=== PATIENT | female | born 1955 | race Two or more races ===

== ENCOUNTER 2017-02-02 10:15 | Inpatient (IN) | payer OTHER ==
[~2017-02-02] VITALS: Ht 162.6 cm; Wt 82.6 kg
[2017-02-10] VITALS (10 sets, daily range): BP systolic 108–147; BP diastolic 44–74
[2017-02-10] MEDS ORDERED: Vancomycin 1gm inj IVPB ONE (12:35)
[2017-02-10] MEDS ORDERED: Thrombin 5000 units TOPIC ONE (12:35)
[2017-02-10] MEDS ORDERED: Bacitracin 50000 Units Vial ONE (12:36)
[2017-02-10] MEDS ORDERED: Bupivacaine w/Epi 0.5% 30ml Vial INJ ONE (12:36)
[2017-02-10] MEDS ORDERED: SIMVASTATIN40 MG ORAL (13:12)
[2017-02-10] MEDS ORDERED: KLONOPIN1 MG ORAL (13:13)
[2017-02-10] MEDS ORDERED: BUPROPION HCL100 M1 ORAL ×2 (13:14→13:15)
[2017-02-10] MEDS ORDERED: NORMODYNE100 MG ORAL (13:16)
[2017-02-10] MEDS ORDERED: HYDRALAZINE HCL10 MG ORAL (13:17)
[2017-02-10] MEDS ORDERED: ASPIR 8181 MG ORAL (13:18)
--- NOTE | 2017-02-10 13:29 | Pre-Procedure Note/Attestation ---
Pre-Procedure Note/Attestation Complete Prior to Procedure Procedure Narrative: acdf c45 and c56 Indications for Procedure Pre-Operative Diagnosis: cerv radiculopathy Attestation I attest that I discussed the nature of the procedure; its benefits; risks and complications; and alternatives (and the risks and benefits of such alternatives ), prior to the procedure, with the patient (or the patient's legal route service representative). I attest that, if there was a reasonable possibility of needing a blood transfusion, the patient (or the patient's legal route service representative) was given the [facility] standardized written summary, pursuant to the Dionicio Winigan Blood Safety Act ([place] Health and Safety Code # 1645, as amended). I attest that I re-evaluated the patient just prior to the surgery and that there has been no change in the patient's H&P, except as documented below: COLLEEN OSPINA Feb 10, 2017 13:29
[2017-02-10] MEDS ORDERED: Norco 5mg/325mg tab ORAL PRN (13:30)
[2017-02-10] MEDS ORDERED: HYDROmorphone 1mg/ml Carpuject SUBQ PRN (13:30)
[2017-02-10] MEDS ORDERED: Norco 7.5mg/325mg tab ORAL PRN ×2 (13:30)
[2017-02-10] MEDS ORDERED: HYDROmorphone 1mg/ml Carpuject IVP PRN (13:30)
[2017-02-10] MEDS ORDERED: Naloxone 0.4mg/ml Inj IVP PRN (13:30)
[2017-02-10] MEDS ORDERED: NS Irrig 1000ml ONE (14:00)
[2017-02-10] MEDS ORDERED: LR 1000ml ONE (14:00)
[2017-02-10] MEDS ORDERED: Ketorolac 30mg Inj ONE (14:00)
[2017-02-10] MEDS ORDERED: fentaNYL 250mcg/5ml ONE (14:00)
[2017-02-10] MEDS ORDERED: Propofol 10mg/ml 100ml btl IV ONE (14:00)
[2017-02-10] MEDS ORDERED: Succinylcholine 20mg/ml 10ml vial ONE (14:00)
[2017-02-10] MEDS ORDERED: Midazolam 2mg/2ml Inj ONE (14:00)
[2017-02-10] MEDS ORDERED: Sterile Water Irrig 1000ml IRRIG ONE (14:00)
[2017-02-10] MEDS ORDERED: Zemuron 50mg/5ml Inj IV ONE (14:00)
[2017-02-10] MEDS ORDERED: LR 1000ml 1,000 ML IVLG SCH (14:54)
--- NOTE | 2017-02-10 14:54 | Anethesia Preoperative Eval ---
Anesthesia Pre-op PMH/ROS General Date of Evaluation: Feb 10, 2017 Time of Evaluation: 13:16 Anesthesiologist: Osmar ASA Score: ASA 3 Mallampati Score Class I : Soft palate, uvula, fauces, pillars visible Class II: Soft palate, uvula, fauces visible Class III: Soft palate, base of uvula visible Class IV: Only hard plate visible Mallampati Classification: Class II Surgeon: Honorio Diagnosis: Symptomatic cervical spinal stenosis Surgical Procedure: ACDF C4-C5 C5-C6 Anesthesia History: none Allergies: Coded Allergies: No Known Allergies (Unverified , 02/07/17) Medications: see eMAR Past Medical History Cardiovascular: Reports: CAD - stable, HTN, Denies: MS, arrhythmia, other, valve dz Pulmonary: Denies: COPD, TOMA, asthma, other Gastrointestinal/Genitourinary: Reports: GERD, Denies: CRI, ESRD, other Neurologic/Psychiatric: Reports: TIA - in remote past asymptomatic, depression/ anxiety, Denies: CVA, dementia, other Endocrine: Denies: DM, hypothyroidism, other, steroids HEENT: Denies: KALTAG (L), KALTAG (R), cataract (L), cataract (R), glaucoma, other Hematology/Immune: Denies: DVT, anemia, bleeding disorder, other Musculoskeletal/Integumentary: Denies: DDD, DJD, OA, RA, edema, other Other: other - overweight PMH Narrative: as above C-sections x 2, knee arthroscopy PSxH Narrative: as above Anesthesia Pre-op Phys. Exam Physician Exam Last Vital Signs Date Time Temp Pulse Resp B/P Pulse Ox O2 Delivery O2 Flow Rate FiO2 02/10/17 12:50 98.1 77 18 147/65 96 Room Air Constitutional: NAD Neurologic: CN 2-12 intact Cardiovascular: RRR, no M/R/G Respiratory: CTA Gastrointestinal: other - obesity Airway Exam Mallampati Score: Class II MO: limited Neck: stiff ROM: limited Teeth: intact Dentures: no lower, no upper Anesthesia Pre-op A/P Labs see chart Studies Pre-op Studies: EKG - LBBB, echo - EF > 55% Risk Assessment & Plan Assessment: ASA 3 Plan: GA with ETT neuromonitoring Status Change Before Surgery: No Pre-Antibiotics Drug: Ancef 2 gr. Given Within 1 Hr of Incision: Yes Time Given: 13:52 ALEX JOHNSON M.D. Feb 10, 2017 14:53
[2017-02-10] MEDS ORDERED: DiphenhydrAMINE 50mg/ml Inj IVP PRN (15:00)
[2017-02-10] MEDS ORDERED: Metoclopramide 10mg/2ml Inj IVP PRN (15:00)
[2017-02-10] MEDS ORDERED: Midazolam 2mg/2ml Inj IVP PRN (15:00)
[2017-02-10] MEDS ORDERED: Hydromorphone 0.5mg/0.5ml inj IVP PRN (15:00)
[2017-02-10] MEDS ORDERED: fentaNYL 100 mcg/2 mL IV PRN (15:00)
--- NOTE | 2017-02-10 16:49 | Diagnostic Imaging Report ---
Indication: Neck Pain Findings: Fluoroscopic views of the cervical spine were obtained. Localization image followed by anterior fusion C4-C6 noted. Discectomy/prosthesis placement noted as well. Impression: Intraoperative imaging
--- NOTE | 2017-02-10 17:01 | Immediate Post-Op Evaluation ---
Immediate Post-Op Evalulation Immediate Post-Op Evalulation Procedure: ACDF C4-C5, C5-C6 Date of Evaluation: Feb 10, 2017 Time of Evaluation: 16:59 IV Fluids: 1100 Blood Products: none Estimated Blood Loss: <50 Urinary Output: 100 Blood Pressure Systolic: 113 Blood Pressure Diastolic: 68 Pulse Rate: 76 Respiratory Rate: 22 O2 Sat by Pulse Oximetry: 99 Temperature (Fahrenheit): 97.6 Pain Score (1-10): 3 Nausea: No Vomiting: No Complications none Patient Status: awake, patent, extubated, none Hydration Status: adequate ALEX JOHNSON M.D. Feb 10, 2017 17:01
--- NOTE | 2017-02-10 17:49 | Brief Operative Note ---
Immediate Post Operative Note Operative Note Pre-op Diagnosis: cerv radiculopathy Procedure: acdf c56 and c45 Post-op Diagnosis: same as pre-op Findings: consistent w/pre-op dx studies Surgeon: temi Zmt Operator: reyna Anesthesiologist: triny Anesthesia: general Specimen: none Complications: none Condition: stable Fluids: 1000cc Estimated Blood Loss: minimal Drains: none Implant(s) used?: Yes COLLEEN OSPINA Feb 10, 2017 17:49
[2017-02-10] MEDS: Docusate 100mg tablet ORAL SCH (19:18)
[2017-02-10] MEDS: D5 1/2NS 1,000 ML IV SCH (19:18)
[2017-02-10] MEDS ORDERED: HydrALAZINE 10mg Tab ORAL PRN (20:45)
[2017-02-10] MEDS ORDERED: BuPROPion SR 150mg tab ORAL SCH (21:30)
[2017-02-10] MEDS ORDERED: Atorvastatin 20mg tab ORAL SCH (21:45)
[2017-02-11] VITALS: BP 141/65
[2017-02-11] MEDS ORDERED: ceFAZolin sod 1 GM in D5W 55 ML IV SCH ×2
[2017-02-11] MEDS: ceFAZolin sod 1 GM in NS 55 ML IV SCH ×2 (00:51→08:47)
[2017-02-11 04:00] VITALS: BP 126/58
[2017-02-11] MEDS: D5 1/2NS 1,000 ML IV SCH (04:49)
[2017-02-11 08:00] VITALS: BP 139/67
[2017-02-11] MEDS: Docusate 100mg tablet ORAL SCH (08:47)
[2017-02-11] MEDS ORDERED: BuPROPion SR 150mg tab ORAL SCH (09:00)
--- NOTE | 2017-02-11 10:02 | 48 Hour Post Anesthesia Eval ---
Post Anesthesia Evaluation Procedure: ACDF C4-C5, C5-C6 Date of Evaluation: Feb 11, 2017 Time of Evaluation: 10:00 Blood Pressure Systolic: 138 0: 72 Pulse Rate: 74 Respiratory Rate: 20 Temperature (Fahrenheit): 97.6 O2 Sat by Pulse Oximetry: 98 Airway: patent Nausea: No Vomiting: No Pain Intensity: 2 Hydration Status: adequate Cardiopulmonary Status: stable Mental Status/LOC: patient returned to baseline Follow-up Care/Observations: n/a Post-Anesthesia Complications: none Follow-up care needed: N/A ALEX JOHNSON M.D. Feb 11, 2017 10:02
[2017-02-11] MEDS ORDERED: SOMA350 MG PO (10:53)
[2017-02-11] MEDS ORDERED: NORCO 5-325 TA1 EACH ORAL (10:53)
[2017-02-11 12:00] VITALS: BP 128/69
[2017-02-11] MEDS ORDERED: D5 1/2NS 1000ml IV ONE (13:34)
[2017-02-11] MEDS ORDERED: Tubing IV Secondary IV ONE (13:34)
--- NOTE | 2017-02-11 23:18 | Operative Note - Dictated ---
DATE OF OPERATION: 02/10/2017 PREOPERATIVE DIAGNOSIS: C4-C5 and C5-C6 disc protrusions with stenosis and right upper extremity radiculopathy. POSTOPERATIVE DIAGNOSIS: C4-C5 and C5-C6 disc protrusions with stenosis and right upper extremity radiculopathy. PROCEDURE PERFORMED: 1. Anterior cervical interbody arthrodesis at C4-C5 and C5-C6. 2. Anterior cervical instrumentation at C4-C5 and C5-C6. 3. Anterior diskectomy and decompression of the spinal canal and anterior foraminotomy at C4-C5 and C5-C6. 4. Implantation of PEEK interbody device with local autograft and allograft at C4-C5 and C5-C6. 5. Autologous bone harvest. 6. Intraoperative use of fluoroscopy. 7. Intraoperative use of microscope. 8. SSEP and EMG monitoring. SURGEON: Nnamdi Olmedo M.D. SUPERINTENDENT CAR CONSTRUCTION: Paul Carranza M.D. ANESTHESIA: General endotracheal anesthesia. ANESTHESIOLOGIST: Luis Prasad M.D. EBL: Less than 50 mL. INTRAVENOUS ANTIBIOTICS: 2 g of Ancef. COMPLICATIONS: None. BACKGROUND INDICATIONS: This is a pleasant female, who has failed nonoperative treatment and option for above treatment was given. Risks, alternatives, and benefits were discussed with the patient. Risks include, but are not limited to anesthesia complications including , medical complications including liver, kidney, and cardiopulmonary deficits, bleeding, infection, dysphonia, dysphagia, hematoma of the neck, nerve root injury, paralysis, spinal cord injury, CSF leak, dural tear, fracture of the hardware, loosening of the hardware, need for revision, decompression and fusion, swallowing difficulties, esophageal injury, tracheal injury, recurrent laryngeal nerve injury as well as other complications including compartment syndrome. The patient understood and wished to proceed. All the patient's questions were answered. Written and verbal consent was given. No guarantees were given. OPERATIVE FINDINGS: The C4-C5 and C5-C6 disk protrusions with central canal, lateral recess, and foraminal stenosis and compression of the bilateral C5 and C6 nerve roots. DESCRIPTION OF OPERATION: The patient was brought into the operating room supine on the stretcher. Appropriate IV lines were placed by the anesthesiologist. A 2 g of Ancef was administered. The patient was induced and intubated without complication. The patient was positioned onto the operating room table. The neck was placed in neutral to slight extension. The arms were tucked by the side. All bony prominences were well padded as well as the four extremities. SSEP and EMG monitoring leads were placed and recordings remained stable throughout the case. Preoperative fluoroscopy revealed the planned incision to be on the right side over the C4-C5 and C5-C6 interspaces. Fluoroscopy revealed the neck to be in adequate alignment. The neck was prepped and draped in the usual sterile fashion. At this point, an incision was carried out with a scalpel on the anterior right side of the neck in the crease of the neck. Hemostasis was achieved with bipolar cautery. The platysma was incised in line with the skin incision. Blunt dissection was carried out in the interval between the strap muscles and sternocleidomastoid. Superficial cervical fascia was dissected caudally as well as cephalad. Carotid pulse was palpated and was found to be lateral to the field of dissection. Deep cervical fascia was encountered. Once the deep cervical fascia was found, blunt dissection was carried out with Kitner as well as finger dissection to find the prevertebral space. The longus coli was gently subperiosteally dissected off of the spine at C4-C5 and C5-C6. At this point, retractors were set into place from the back of system. The case was done with the intraoperative sterilely draped microscope from the skin incision to skin closure. At this point, spinal needle was placed in the C4-C5 and C5-C6 interspaces were positively identified. Attention was first diverted to the C5-C6 level with a #15 scalpel where an incision was made into the anterior anulus and with straight and curved curettes #1, #2, and #3 Kerrison punches, a radical diskectomy was completed. Endplate bone was preserved. Endplate cartilage was removed and a high-speed drill was used to drill to the level of the posterior longitudinal ligament. The posterior aspect of the C5 and C6 vertebral bodies was removed for a complete decompression of the spinal canal with #2 micro set curette. The PLL was removed and with #1 and #2 Kerrison punches, a radical diskectomy was accomplished with complete decompression of the spinal canal, the spinal cord, the lateral recess, and foramina. There was spinal cord compression as well as significant foraminal stenosis for the exiting nerve. By the end of the decompression, there was complete decompression of the neural elements. The wound was copiously irrigated with triple antibiotic solution and now, the retractors were gently moved to the C4-C5 level and with identical instruments including a scalpel, straight and curved curettes #1, #2, and #3 Kerrison punches, a radical diskectomy was accomplished. Endplate bone was preserved. Endplate cartilage was removed and with a high-speed drill, the posterior aspects of the C4 and C5 vertebral bodies were removed to the level of the posterior longitudinal ligament. A micro set #2 curette was used to remove the posterior longitudinal ligament with #1 and #2 Kerrison punches. A complete decompression of the central canal, lateral recess, and foramina was done for complete decompression of the spinal cord and the exiting nerve roots. SSEP and EMG remained stable throughout the case. The wound was copiously irrigated with triple antibiotic solution and at this point, attention was diverted to placing trials. Trials from the spinal element system were used and PEEK interbody devices were chosen of the following dimension 16 x 13 x 6 mm. Two of the PEEK cages were chosen and was packed with local autograft, which was taken from the local drilling of the vertebral bodies as well as Kathy putty. Each PEEK device was carefully placed into the interbody space with excellent recreation of disk height and lordosis at both C4-C5 and C5-C6. AP and lateral fluoroscopy revealed the instrumentation to be in good position and now, a [place] plate measuring 26 mm was chosen, was bent into a lordotic fashion, and with 14 mm self-drilling screws were fixed to the anterior surface of the C4, C5, and C6 vertebral bodies with excellent purchase of each screw. Each screw was well medialized and sat below the locking mechanism of the [place] plate successfully. Final AP and lateral fluoroscopy revealed instrumentation to be in excellent position with good lordosis and good contouring of the plate against the vertebral body. At this point, the wound was copiously irrigated with triple antibiotic solution. There was no bleeding and therefore, a drain was chosen not to be used. Attention was now diverted to closure. A 1 g of vancomycin powder was placed into the wound. The platysma was closed with 2-0 Vicryl sutures in an interrupted fashion. The subdermal and subcuticular layers were closed with 3-0 Vicryl sutures. Dermabond was used for skin closure. Telfa and sterile dressing was placed. C-collar was placed. The patient was extubated and taken to the recovery room in stable condition. She was admitted to the hospital for observation and pain medication. Pain prescription was given to the patient for discharge after admission and the patient remained stable. Nnamdi Olmedo M.D. DR: Gordo JOB#: [id number] CC: FOSTER
--- NOTE | 2017-02-13 08:04 | Discharge Summary ---
Discharge Summary Hospital Course Date of Admission Feb 10, 2017 at 11:57 Date of Discharge Feb 11, 2017 at 13:35 Admitting Diagnosis cervical radiculopathy Reason for Hospitalization: elective surgery HPI Radha Fischer is a 61 year old female who was admitted on Feb 10, 2017 at 11: 57 for Cervical Stenosis,Radiculopathy for elective surgery Procedures 02/10 dr Olmedo 1. Anterior cervical interbody arthrodesis at C4-C5 and C5-C6. 2. Anterior cervical instrumentation at C4-C5 and C5-C6. 3. Anterior diskectomy and decompression of the spinal canal and anterior foraminotomy at C4-C5 and C5-C6. 4. Implantation of PEEK interbody device with local autograft and allograft at C4-C5 and C5-C6. 5. Autologous bone harvest. 6. Intraoperative use of fluoroscopy. 7. Intraoperative use of microscope. 8. SSEP and EMG monitoring. Hospital Course admitted for elective surgery for cervical radiculopathy course of recovery uneventful surgery followed pain management, controlled postop diet tolerated dressing C/D/I, no bleeding, neurovascular intact BP stable no chest pain, no SOB, GI prophylaxis surgeon cleared fro discharge home with follow up at surgeon office DISCHARGE DIAGNOSIS C4-C5 and C5-C6 disc protrusions with stenosis and right upper extremity radiculopathy. s/p Anterior cervical interbody arthrodesis at C4-C5 and C5-C6. postoperative pain HTN CAD GERD due to rapid and unexpected improvement in patient condition the patient was discharged in 1 day Discharge Medications Continued Medications: Bupropion Sr* (Bupropion Sr*) 100 Mg Tablet.er 150 MG ORAL QPM, TAB Bupropion Sr* (Bupropion Sr*) 100 Mg Tablet.er 300 MG ORAL EVERY MORNING, TAB Carisoprodol* (Soma*) 350 Mg Tablet 350 MG PO Q8HR, TAB Clonazepam* (Klonopin*) 1 Mg Tablet 2 MG ORAL QHS, #15 TAB 0 Refills Hydralazine Hcl* (Hydralazine Hcl*) 10 Mg Tablet 12.5 MG ORAL PRN, TAB Hydrocodone Bit/Acetaminophen 5-325* (Cushing 5-325*) 1 Each Tablet 1 TAB ORAL Q6H PRN for For Pain, #10 TAB 0 Refills Labetalol HCl (Labetalol HCl) 100 Mg Tablet 100 MG ORAL DAILY, TAB Simvastatin (Zocor) 40 Mg Tablet 40 MG ORAL BEDTIME, TAB Discontinued Medications: Aspirin* (Aspir 81*) 81 Mg Tablet. 81 MG ORAL DAILY, TAB Discharge Condition Upon Discharge: stable Discharge Disposition Patient was discharged to Home (01) Discharge Diagnoses: Discharge Instructions Discharge Instructions Diet: soft Special Instructions I have been assigned to complete a D/C Summary on this account. I was not involved in the patient management For Surgical Patients Clean and Dry: surgical site Dressing Care: keep dry and clean Contact your physician for: bleeding, pain, tenderness, redness, swelling, yellowish discharge in the op. site [place] [facility] NP Feb 13, 2017 08:04
== END 2017-02-11 13:35 | disposition home or self-care (01) | DRG 460 ==
LOC: SDSOVERFLO 02-10 11:57 → 3E 02-10 18:00
DX: M50.121 Cervical disc disorder at C4-C5 level with radiculopathy (principal); M48.02 Spinal stenosis, cervical region; I10 Essential (primary) hypertension; Z86.73 Personal history of transient ischemic attack (TIA), and cerebral infarction without residual deficits; I44.7 Left bundle-branch block, unspecified; R94.31 Abnormal electrocardiogram [ECG] [EKG]; E78.5 Hyperlipidemia, unspecified; F41.9 Anxiety disorder, unspecified; I25.10 Atherosclerotic heart disease of native coronary artery without angina pectoris; K21.9 Gastro-esophageal reflux disease without esophagitis
CPT/HCPCS: 36415; 72040; 76001; 86850; 86900; 86901; 87081; 94003; 94150; 94760; J2250; J2405